=== PATIENT | female | born 1975 | race Caucasian/White ===

== ENCOUNTER 2020-01-04 09:17 | Emergency (ER) | payer OTHER ==
[~2020-01-04] VITALS: Ht 162.6 cm; Wt 64.0 kg
[2020-01-04] MEDS ORDERED: HYDROCODONE/ACETAMINOPHEN 5/325MG TABLET PO ONE (10:15)
[2020-01-04 12:10] LABS: HEMATOCRIT. 40.8 % (36.0-48.0); HEMOGLOBIN. 13.6 g/dL (12.0-16.0); MEAN CORPUSCULAR HEMOGLOBIN 28.5 pg (28.0-32.0); MEAN CORPUSCULAR VOLUME 85.2 fL (81.0-99.0); MEAN PLATELET VOLUME 8.2 fl (7.4-10.4); PLATELET 313 x1000/uL (130-400); RED BLOOD CELL COUNT 4.79 mill/uL (4.2-5.4); RED CELL DISTRIBUTION WIDTH 14.8 % (11.6-14.6)
[2020-01-04 12:19] LABS: CHLORIDE 109 mEq/L (98-107)
[2020-01-04 12:21] LABS: INR 0.9; PROTHROMBIN TIME 9.6 sec (9.6-11.0)
[2020-01-04] MEDS ORDERED: SODIUM CHLORIDE 0.9% 1,000 ML IV ONE (12:30)
[2020-01-04 13:12] LABS: PLATELET ESTIMATE NORMAL
[2020-01-04 14:08] VITALS: BP 122/56
[2020-01-04] MEDS ORDERED: IOHEXOL-300 100 ML BOTTLE ONE (14:58)
== END 2020-01-04 14:10 | disposition home or self-care (01) ==
LOC: ER 09:17
DX: S16.1XXA Strain of muscle, fascia and tendon at neck level, initial encounter (principal); S20.219A Contusion of unspecified front wall of thorax, initial encounter; V43.62XA Car passenger injured in collision with other type car in traffic accident, initial encounter; Y93.89 Activity, other specified; Y92.488 Other paved roadways as the place of occurrence of the external cause
CPT/HCPCS: 36415; 71045; 71260; 72125; 74177; 80053; 81025; 84484; 85025; 85610; 93005; 99285; J7030; Q9967